=== PATIENT | male | born 1990 | race Caucasian/White ===

== ENCOUNTER 2020-10-17 16:48 | Emergency (ER) | payer SELFPAY ==
[~2020-10-17] VITALS: Ht 180.3 cm; Wt 122.5 kg
[2020-10-17 16:50] VITALS: BP 149/90
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
[2020-10-17 17:55] VITALS: BP 149/90
--- NOTE | 2020-10-17 17:57 | NUR ---
Patient discharged with v/s stable. Written and verbal after care instructions given and explained. Patient alert, oriented and verbalized understanding of instructions. Ambulatory with in custody. All questions addressed prior to discharge. ID band removed. Patient advised to follow up with PMD.
== END 2020-10-17 17:57 ==
LOC: MED 16:48
DX: R03.0 Elevated blood-pressure reading, without diagnosis of hypertension (principal); F12.90 Cannabis use, unspecified, uncomplicated; Z02.89 Encounter for other administrative examinations
CPT/HCPCS: 99283